=== PATIENT | male | born 1940 | race Caucasian/White ===

== ENCOUNTER 2019-04-01 13:03 | Outpatient (CLI) | payer MEDICARE, SELFPAY ==
--- NOTE | 2019-04-01 13:30 | USCV_ITS ---
Conner Owen Age: 79 Gender: M : 1940 Exam Date: 04/01/2019 13:26 Ordering Phys: Demetria Jung Technologist: Margarette Barton Exam Location: [facility] [place] Indication: HISTORY: PROCEDURES: Comparison: none available. Bilateral duplex Venous Insufficiency study of the Deep and Superficial systems was carried out according to normal protocol with the patient in supine positon for deep system and dependent position for the superficial system. Serial compression, augmentation maneuvers, and spectral Doppler flow evaluation were performed. FINDINGS: All deep veins demonstrated compressibility without evidence of intraluminal thrombus or increased echogenicity. Reflux determinations were made with the patient in the dependent position, the weight being on the contralateral leg. Vein measurements and reflux times are listed above were applicable. CONCLUSIONS 1. No deep vein thrombosis are noted. 2. Significant reflux of greater than 1000 ms was noted in the right femoral vein. 3. Significant venous reflux of greater than 500 ms were noted on the left side distal to the saphenofemoral junction, proximal and mid greater saphenous vein segments and below-knee greater saphenous vein segments. 4. Venous dimensions, depth from the surface and reflux times are as mentioned above Dr Augusto Weaver MD [facility] (Electronically Signed) Final Date: 06 April 2019 07:10 S
== END 2019-04-01 13:04 | disposition home or self-care (01) ==
PROVIDERS: Family Provider Physician Assistant Medical; PCP Physician Assistant Medical; Visit Provider Nurse Practitioner Family
DX: I83.93 Asymptomatic varicose veins of bilateral lower extremities (principal)
CPT/HCPCS: 93970

== ENCOUNTER → 2019-05-03 08:47 | Day surgery (SDC) | payer MEDICARE, SELFPAY ==
--- NOTE | 2019-05-03 09:10 | PC.NURSE ---
Patient brought back to CPRU room 4. Jimeneztent was not placed on the Ultrasound schedule today per US juju Mustafa. US juju Mustafa, states to this nurse that the patient might not be a candidate for a venous ablation today. Dr. Nieto notified. Dr. Nieto is in an emergent procedure in the chemical lab supervisor. Orders received for US juju Mustafa, to re scan the patient's lower extremity. Dr. Nieto will be notified when the scan is in progress.
--- NOTE | 2019-05-03 09:55 | PC.NURSE ---
Mami Toure, [facility], here to scan the patient's lower leg. Dr. Nieto notified in person by this nurse.
--- NOTE | 2019-05-03 10:40 | PC.NURSE ---
After looking at the patients left lower extremity ultrasound it was decided by Dr. Nieto that the vessel was too superficial to ablate. The patient and his 2 caregivers were explained at length about cancelling todays procedure and referring the patient to Dr. Tristan in [place] for venous sealing. Dr. Tristan was contacted by Dr. Nieto and he is agreeable to see the patient. A CD was made and will be sent overnight to Dr. Tristan's office. The patient was then discharged home with his [address] Tristan's office will get ahold of him with an appointment today. The patient was then ambulated out to the parking lot.
--- NOTE | 2019-05-03 10:42 | P.SS_ITS ---
Short Stay Summary Providers Date of Admit/Discharge: 05/03/19 Attending Provider: Aleksandra Nieto MD Primary Care Provider: Narinder Loyd [facility] History of Present Illness Owen Prieto is a 79 year old male Past medical history significant for Bleeding varicose veins significant reflux In the left side GSV and SSV, history of PVCs and hypertension Came in for radiofrequency ablation which was scheduled. Rescanning of the Left greater saphenous vein shows it course come nearby skin within 0.5 mm. Since vessel is near the skin he may not be an ideal candidate for greater saphenous vein radiofrequency ablation as it can also burned skin. I therefore cancel the procedure and referred him to Dr. Anthony in [facility] for possible venaseal Review of Systems General: Reports: 10 or more systems reviewed and unremarkable except in HPI and below Home Meds/Allergies Home Medications and Allergies Home Medications Medication Instructions Recorded Confirmed Type levothyroxine 175 mcg capsule 175 mcg PO DAILY cap 03/22/19 04/09/19 History omeprazole 20 mg capsule,delayed 20 mg PO DAILY cap 03/22/19 04/09/19 History release Allergies Allergy/AdvReac Type Severity Reaction Status Date / Time morphine Allergy Unknown Unknown Verified 04/09/19 11:52 PFSH Acute PFSH: Medical History (Updated 05/03/19 @ 10:57 by Aleksandra Nieto MD) HTN (hypertension) PVCs (premature ventricular contractions) Syncope Surgical History H/O shoulder surgery H/O thyroidectomy H/O total knee replacement History of hip replacement History of tonsillectomy Social History Smoking and tobacco status: never smoked Personal Safety: Do you feel safe at home: Yes Victim of physical abuse: No Victim of emotional abuse: No Victim of sexual abuse: No Would you like help information on resources?: No Physical Exam Narrative: EXAM NARRATIVE: GENERAL: Patient is alert, awake and oriented x3. NECK: No jugular vein distension. HEENT: No cyanosis. No icterus. No pallor. HEART: Regular S1 and S2. No murmur, rub or gallop. LUNGS: Clear to auscultate bilaterally. ABDOMEN: Soft, nontender and nondistended. Positive bowel sounds. No guarding, rebound or tenderness. CENTRAL NERVOUS SYSTEM: Grossly nonfocal. EXTREMITIES: Lower extremities without edema bilaterally. Varicose veins bilaterally with healing wound on the left medial site of lower leg. Hospital Course Discharge Summary: As above patient radiofrequency ablation procedure was canceled since anatomically it is not suitable and can medically to complication due to close proximity of the vein to the skin. Patient has been referred to Dr. ANTHONY possible venaseal procedure. Diagnoses at Discharge Discharge Diagnosis (1) Varicose vein of leg: Status: Acute Problem details: As defined above patient has bleeding varicose veins With significant reflux. He came in for radiofrequency ablation while doing rescanning it was observed that left great saphenous vein and runs close to the skin less than 0.5 mm we will therefore refer him for venous seal which may be a suitable procedure for him as we do not have it available here. Discharge Plan Discharge Prescriptions: No Action levothyroxine 175 mcg capsule 175 mcg PO DAILY RF: 0 omeprazole 20 mg capsule,delayed release(DR/EC) 20 mg PO DAILY RF: 0 Attestations Medical Necessity Statement*: Patient can be discharged home. He is referred to vein clinic in [facility] Time Spent in Patient Care*: less than 30 min Quality Metrics Clinical Quality Measures: During this hospital stay, did patient experience: None Coding Level of Care Code Established Pt Acute S[employer] Pulper for Annie Casas Patient Type Established Diagnoses Varicose vein of leg I83.90
== END ==
PROVIDERS: Family Provider Physician Assistant Medical; PCP Physician Assistant Medical; Visit Provider Internal Medicine Cardiovascular Disease
DX: Z01.89 Encounter for other specified special examinations (principal)
CPT/HCPCS: 12345

== ENCOUNTER → 2023-05-27 09:30 | Outpatient (BNVA) | payer SELFPAY | PROVIDERS: Family Provider Physician Assistant Medical; PCP Physician Assistant Medical; Visit Provider Dermatology | DX: I10 Essential (primary) hypertension (principal) ==